=== PATIENT | male | born 2000 | race Caucasian/White ===

== ENCOUNTER 2020-06-10 20:14 | Emergency (ER) | payer BC, SELFPAY ==
[2020-06-10 20:40] VITALS: BP 127/88; PULSE 93; RESP 14; TEMP 37.2; O2SAT 97; BMI 29.1
--- NOTE | 2020-06-10 21:01 | XRR_ITS ---
PROCEDURE INFORMATION: Exam: XR Chest, 1 View Exam date and time: 06/10/2020 9:16 PM Age: 19 years old Clinical indication: Chest pain TECHNIQUE: Imaging protocol: XR of the chest Views: 1 view. COMPARISON: No relevant prior studies available. FINDINGS: Lungs: Unremarkable. No consolidation. Pleural space: Unremarkable. No pleural effusion. No pneumothorax. Heart/Mediastinum: Unremarkable. No cardiomegaly. Bones/joints: Unremarkable. XR/XR chest 1V portable [id number] IMPRESSION: No acute findings.
--- NOTE | 2020-06-10 21:42 | ECG_ITS ---
[facility] Test Date: 2020-06-10 Pat Name: Francis Madison Department: Room: Gender: Male Category Analyst: KADEEM : 2000 Requested By: Yazmin Adhikari Order Number: [id number] Tonya MD: Savage Perez M.D. Measurements Intervals [place] Rate: 96 P: 55 KS: 143 QRS: 52 QRSD: 83 T: 22 QT: 328 QTc: 415 Interpretive Statements SINUS RHYTHM No previous ECG available for comparison Electronically Signed On 06-11-2020 22:19:07 UNARMED SECURITY GUARD by Savage Perez M.D. [id number]
== END 2020-06-10 22:45 ==
PROVIDERS: Emergency Provider Physician Assistant
DX: Z53.21 Procedure and treatment not carried out due to patient leaving prior to being seen by health care provider (principal)
CPT/HCPCS: 71045; 93005; 99281

== ENCOUNTER 2022-04-05 01:27 | Emergency (ER) | payer BC, SELFPAY ==
[2022-04-05 01:28] VITALS: BP 150/96; PULSE 77; RESP 18; TEMP 36.9; O2SAT 98; BMI 33.9
--- NOTE | 2022-04-05 01:46 | ED_ITS ---
HPI - Headache General: Chief Complaint: Headache Stated Complaint: Head pain Time Seen by Provider: 04/05/22 01:36 Source: patient Mode of arrival: ambulatory Limitations: no limitations History of Present Illness: 21-year-old male states he has had a headache over the last day. He states that earlier it was much worse states it is improved after some Tylenol states his pain is currently a 4 out of 10 states is mainly on the right side denies this being the worst head of his light denies a thunderclap headache. Denies any fever or neck pain. Denies vomiting Associated symptoms: Deny chest pain, fever(s), nausea, rash or vomiting Review of Systems Const: Denies: fever(s), chills, body aches or change in appetite Eyes: Denies: blurry vision or eye discomfort ENMT: Denies: throat pain or dental pain Card: Denies: chest pain Resp: Denies: dyspnea GI: Denies: abdominal pain, nausea, vomiting or diarrhea : Denies: dysuria Musc: Denies: neck pain or back pain Skin/Breast: Denies: rash Neuro: Reports: headache(s) Psych: Denies: depression Shiraz/Lymph: Denies: easy bruising All/Imm: Denies: urticaria PFSH ED PFSH: Medical History (Updated 04/05/22 @ 01:49 by Nidia Bryant MD) No pertinent past medical history Social History (Updated 04/05/22 @ 01:47 by Nidia Bryant MD) Substance/Drug Use: never Physical Exam Const: COMMON NORMALS: no acute distress, patient oriented x3 and healthy appearing HENMT: COMMON NORMALS: normocephalic and atraumatic HEAD & SCALP: normocephalic and atraumatic Eye: COMMON NORMALS: Equal, round and reactive pupils present and EOMs intact bilaterally PUPIL: Yes Equal, round and reactive pupils present Neck/C-Spine: COMMON NORMALS: full ROM and supple Chest: COMMONS NORMALS: normal inspection of the chest and normal palpation of entire chest wall Resp: COMMON NORMALS: normal respiratory effort, No retractions, No use of accessory muscles and clear to auscultation bilaterally AUSCULTATION: clear to auscultation bilaterally Cardio: COMMON NORMALS: regular rate, regular rhythm and No murmurs present (Cardio) RATE: regular rate RHYTHM: regular rhythm GI: COMMON NORMALS: Normal to inspection, nondistended, normoactive bowel sounds present, Soft to palpation, non-tender and no masses PALPATION: Yes Soft to palpation Extremity: COMMON NORMALS: normal to inspection and full ROM Neuro: COMMON NORMALS: patient oriented x3, moves all extremities and no focal motor deficits Psych: COMMON NORMALS: mental status grossly normal, Normal thought process present and cooperative THOUGHT PROCESS: Normal thought process present Skin: COMMON NORMALS: no rashes or lesions noted and no wounds GENERAL SKIN EXAM: no rashes or lesions noted Course Vital Signs: Vital signs: Vital Signs Temperature 98.4 F 04/05/22 01:28 Pulse Rate 77 04/05/22 01:28 Respiratory Rate 18 04/05/22 01:28 Blood Pressure 150/96 04/05/22 01:28 Pulse Oximetry 98 04/05/22 01:28 Oxygen Delivery Me thod 04/05/22 01:28 MDM - Headache Medical Decision Making Patient presents here with headache likely tension headache he is well-appearing here has no signs of subarachnoid hemorrhage or meningitis his headache here is resolved he is stable for discharge he is to follow-up with PCP and return if worsening. Discharge Plan Discharge Patient Disposition: Home Clinical Impression: Headache Qualifiers: Headache type: unspecified Headache chronicity pattern: unspecified pattern Intractability: not intractable Qualified Code(s): R51.9 - Headache, unspecified Discharge Orders: Discharge ED (Routine); Ordered 04/05/22 Ordered By: Nidia Bryant Discharge Diet: Advance as tolerated Discharge Activity: Resume usual activity Patient Instructions: Acute Headache (ED) Coding Level of Care Code ED Transformation Analyst for Cami Fwd Exam Comprehensive
[2022-04-05] MEDS: ketorolac 60 mg/2 mL INJ IM (01:59)
[2022-04-05] MEDS: diphenhydrAMINE 50 mg/mL SDV 1mL IM (01:59)
[2022-04-05] MEDS: metoclopramide 5 mg/mL SDV 2 mL 10 MG IM (01:59)
== END 2022-04-05 02:17 | disposition home or self-care (01) ==
PROVIDERS: Emergency Provider Emergency Medicine
DX: R51.9 Headache, unspecified (principal)
CPT/HCPCS: 96372; 99284; J1200; J1885; J2765

== ENCOUNTER 2023-12-21 12:06 | Emergency (ER) | payer BC, MEDICAID, SELFPAY ==
[2023-12-21 12:11] VITALS: BP 151/90; PULSE 95; RESP 17; TEMP 36.7; O2SAT 98; BMI 33.9
--- NOTE | 2023-12-21 13:29 | W.ED.NEUROSD ---
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 Patient states yesterday morning he woke up and noticed that his tobacco chew was running out the left side of his mouth. He also noticed difficulty closing his eye. Patient was seen at [place], [place] emergency department and diagnosed with Otoole's palsy. He had steroids sent to his pharmacy but has not picked these up. He feels like symptoms are worse today and he is now having altered sensation to the left side of his tongue which concerned him. Denies any recent illness. Denies recent tick bites. Onset (ago): day(s) (yesterday morning) Location: left face History of same: No Relieving factors: none Exacerbating factors: none Context: sudden onset On Anticoagulants: No Associated symptoms: Reports no associated symptoms; Deny chest pain, nausea or vomiting Treatments Prior to Arrival: none Review of Systems Eyes: Reports: eye discomfort (L; cannot close L eye); Denies: change in vision, blurry vision, photophobia, floaters or seeing flashes Card: Denies: chest pain or palpitations Resp: Denies: dyspnea GI: Denies: nausea or vomiting Neuro: Denies: numbness in extremities, weakness in extremities, difficulty walking, dizziness, confusion, behavioral changes, Slurred speech present or seizure-like activity [facility] ED PFSH: Medical History No pertinent past medical history Social History Substance/Drug Use: never NIH stroke score NIHSS: Level Of Consciousness - 1a: 0 Level Of Consciousness Questions - 1b: Both Correct Level Of Consciousness Commands - 1c: Both Correct Best Gaze - 2: Normal Visual Bains - 3: No Visual Loss Facial Palsy - 4: Complete Paralysis (affecting L facial nerve) Motor Arm Right - 5: No Drift Motor Arm Left - 5: No Drift Motor Leg Right - 6: No Drift Motor Leg Left - 6: No Drift Limb Ataxia - 7: Absent Sensory - 8: Normal Best Language - 9: No Aphasia Dysarthia - 10: Normal Extinction And Inattention - 11: 0 Score: Total Score: 3 Physical Exam Const: COMMON NORMALS: no acute distress, average body habitus, patient oriented x3, no limitations, healthy appearing, alert and well nourished HENMT: COMMON NORMALS: normocephalic, atraumatic, external ears normal, EAC's normal and TM's normal bilaterally HEAD & SCALP: normal to inspection, normocephalic and atraumatic FACE & SINUS: Flattened naso-labial fold present Left and other (L facial palsy) EXTERNAL EAR: Yes external ears normal EXTERNAL AUDITORY CANAL: EAC's normal TYMPANIC MEMBRANE: TM's normal bilaterally MOUTH: Normal oral and palatal mucosa present and lip normal THROAT: posterior oropharynx normal and tonsils normal Eye: COMMON NORMALS: Equal, round and reactive pupils present and EOMs intact bilaterally GENERAL EYE: appearance normal, both eyes and all related structures PUPIL: Yes Equal, round and reactive pupils present Neck/C-Spine: COMMON NORMALS: full ROM and no lymphadenopathy GENERAL: Yes normal visual inspection Resp: COMMON NORMALS: normal respiratory effort and clear to auscultation bilaterally AUSCULTATION: clear to auscultation bilaterally Cardio: COMMON NORMALS: regular rate and regular rhythm RATE: regular rate RHYTHM: regular rhythm Extremity: GENERAL: Yes normal exam except as noted Neuro: APOORVA COMA SCALE: document GCS findings [place] coma scale eye opening: Spontaneous Apoorva coma scale verbal response: Orientated Apoorva coma scale motor response: Obey commands [place] coma scale total score: 15 COMMON NORMALS: patient oriented x3, moves all extremities, no focal motor deficits, no sensory deficits noted and gait normal SENSORIUM/ORIENTATION: Yes alert CRANIAL NERVES: Yes CN normal except as noted and Yes CN VII (facial) Laterality: left CN VII left: facial droop, flattened naso-labial fold, unable to puff cheeks, unable to raise eyebrow(s), weak closing of eye(s), asymmetrical smile, absence of eye blink in response to stimulus and impaired sense of taste COORDINATION/BALANCE: [id number] test normal SPEECH: speech normal GAIT: Yes Normal gait present MOTOR EXAM: 5/5 motor strength present throughout COORDINATION: [id number] test normal Course Vital Signs: Vital signs: Vital Signs Temperature 98.0 F 06/11/24 12:11 Pulse Rate 95 12/21/23 12:11 Respiratory Rate 17 12/21/23 12:11 Blood Pressure 151/90 12/21/23 12:11 Pulse Oximetry 98 12/21/23 12:11 Oxygen Delivery Me thod Room Air 12/21/23 12:11 MDM - Neuro Symptoms/Deficit Medical Decision Making Patient has classic left-sided Otoole's palsy. He was given a prescription for steroids from his [place] ED visit. Recommend he start these immediately. He will also be placed on valacyclovir. Will have case management set him up with a primary care appointment in case symptoms do not seem to improve. Medical Records I reviewed the patient's medical records. No radiology studies performed this visit Discharge Plan Discharge Patient Disposition: Home Clinical Impression: Otoole's palsy Condition: Stable Prescriptions: New Valtrex 1 gram tablet 1,000 mg PO Q8H 7 Days Qty: 21 0RF Discharge Orders: Discharge ED (Routine); Ordered 12/21/23 Ordered By: Kathrine Carlson Patient Instructions: Otoole Palsy (ED) Activity Restrictions/Additional Instructions: As we discussed please fill your steroids that were called in yesterday to your pharmacy. Start them immediately along with the antivirals that were prescribed to you today. Case management should contact you this week to help set you up with your follow-up primary care appointment in case symptoms do not improve. Coding Level of Care Code ED Hand Screen Printer for Cami Luciano
[2023-12-21 14:11] VITALS: BP 151/90; PULSE 95; RESP 17; TEMP 36.7; O2SAT 98
== END 2023-12-21 14:12 | disposition home or self-care (01) ==
PROVIDERS: Emergency Provider Physician Assistant
DX: G51.0 Bell's palsy (principal); F17.220 Nicotine dependence, chewing tobacco, uncomplicated
CPT/HCPCS: 99283